=== PATIENT | female | born 1985 | race Caucasian/White ===

== ENCOUNTER 2017-03-02 15:13 | Emergency (ER) | payer OTHER ==
[~2017-03-02] VITALS: Ht 172.7 cm; Wt 141.0 kg
[2017-03-02 15:17] VITALS: BP 134/66; PULSE 96; RESP 16; TEMP 98.3; O2SAT 99
[2017-03-02] MEDS ORDERED: PAXI10TA2 PO (15:44)
[2017-03-02] MEDS ORDERED: TIZA4TAB PO (15:44)
[2017-03-02] MEDS ORDERED: AMLO10TA2 PO ×2 (15:44→17:06)
[2017-03-02] MEDS ORDERED: DIAZ10 PO (15:44)
[2017-03-02] MEDS ORDERED: METF500T PO (15:44)
[2017-03-02] MEDS ORDERED: ADDE20 PO (15:46)
[2017-03-02] MEDS ORDERED: LORA-373 PO (15:46)
[2017-03-02] MEDS ORDERED: PROMETHAZINE INJ 25 MG/ML VIAL IM ONE (16:00)
[2017-03-02] MEDS ORDERED: MORPHINE SULFATE 8 MG/ML INJ IV PUSH ONE (16:00)
[2017-03-02] MEDS ORDERED: SODIUM CHLOR 0.9% 1000 ML INJ 1,000 ML IV ONE (16:00)
[2017-03-02] MEDS ORDERED: DEXAMETHASONE SOD PHOS 4 MG/ML VIAL IV PUSH ONE (16:00)
[2017-03-02] MEDS ORDERED: diphenhydrAMINE HCL 50 MG/ML VIAL IV PUSH ONE (16:00)
--- NOTE | 2017-03-02 16:21 | PD ---
HPI Chief Complaint: Headache Time Seen by Provider: 15:43 Travel History International Travel<30 days: No Contact w/Intl Traveler<30days: No Traveled to known affect area: No History of Present Illness HPI This is a 32-year-old female who has a history of chronic migraines who presents to the emergency department with headache that's been going on for 2 days, constant, severe, in the temporal area associated with photophobia. She states that her headache is similar to her chronic migraines. She is here on vacation. She says her doctor usually prescribes her nasal Stadol as a rescue medication but she doesn't have it with her. She also has heavy vaginal bleeding which is normal for her. PFSH Past Medical History Medical other: Yes (PCOS) Migraines: Yes Influenza Vaccination: No ?: Not LMP: 02/26/2017 Social History Alcohol Use: No Tobacco Use: No Substance Use: No Allergies-Medications (Allergen,Severity, Reaction): Coded Allergies: meperidine (Verified Adverse Reaction, Intermediate, VOMITING, 03/02/17) metoclopramide (Verified Adverse Reaction, Intermediate, CRAZY ANXIETY, 03/02/17) prochlorperazine (Verified Adverse Reaction, Intermediate, CRAZY ANXIETY, 03/02/17) Reported Meds & Prescriptions Reported Meds & Active Scripts Active Reported Adderall (Amphetamine-Dextroamphetamine) 20 Mg Tab 20 Mg PO TID Avoid late evening doses. Space doses at least 4 to 6 hours if more than once/day dosing. Lorazepam 0.5 Mg Tab 0.5 Mg PO HS PRN Tizanidine (Tizanidine HCl) 4 Mg Tab 4 Mg PO QID Amlodipine (Amlodipine Besylate) 10 Mg Tab 10 Mg PO DAILY Metformin (Metformin HCl) 500 Mg Tab 500 Mg PO BIDPC With meals Valium (Diazepam) 10 Mg Tab 10 Mg PO TID Paxil (Paroxetine HCl) 10 Mg Tab 20 Mg PO DAILY Review of Systems Except as stated in HPI: all other systems reviewed are Neg Physical Exam Narrative GENERAL:Well appearing, no acute distress SKIN: Focused skin assessment warm and dry. HEAD: Atraumatic. Normocephalic. EYES: Pupils equal and round. No injection or drainage. ENT: Moist mucous membranes NECK: Trachea midline. CARDIOVASCULAR: Regular rate and rhythm. No murmur appreciated. RESPIRATORY: Clear to auscultation. Breath sounds equal bilaterally. GASTROINTESTINAL: Abdomen soft, non-tender, nondistended. MUSCULOSKELETAL: No obvious deformities. NEUROLOGICAL: Awake and alert. No obvious cranial nerve deficits. No dysarthria or aphasia. Moving all extremities. PSYCHIATRIC: Appropriate mood and affect; insight and judgment normal. Data Data Last Documented VS Vital Signs Date Time Temp Pulse Resp B/P (MAP) Pulse Ox O2 Delivery O2 Flow Rate FiO2 03/02/17 15:17 98.3 96 16 134/66 (88) 99 Orders Orders Sodium Chlor 0.9% 1000 Ml Inj (Ns 1000 M (03/02/17 16:00) Morphine Inj (Morphine Inj) (03/02/17 16:00) Dexamethasone Inj (Decadron Inj) (03/02/17 16:00) Diphenhydramine Inj (Benadryl Inj) (03/02/17 16:00) Promethazine Inj (Phenergan Inj) (03/02/17 16:00) Morphine Inj (Morphine Inj) (03/02/17 17:00) Lidocaine 2% Viscous (Xylocaine 2% Visco (03/02/17 17:00) Jcmbv-Rsbkrh-Vopnmy-Pb Liq ( Liq (03/02/17 17:00) Al-Mag Hy-Si 40-40-4 Mg/Ml Liq (Mag-Al P (03/02/17 17:00) MDM Medical Decision Making Medical Screen Exam Complete: Yes Emergency Medical Condition: Yes Interpretation(s) afebrile, mild tachycardia Differential Diagnosis migraine headache, subarachnoid hemorrhage, meningitis, encephalitis Narrative Course This is a 32-year-old female who has a history of chronic migraines who is visiting from out of town who presents to the emergency department reporting a headache similar to her typical migraines. She has a grossly normal neurologic exam. I tried to call her neurologist in [place] because she wanted me to confirm used Stadol prescription that she has but the voicemail of the neurologists office was full. She was given Benadryl, Decadron, IV fluids, Phenergan and some pain control. She feels better. I told her I wasn't comfortable filling chronic opiates from the emergency department. She was given refills on her blood pressure medication. Diagnosis Primary Impression: Migraine Qualified Codes: G43.909 - Migraine, unspecified, not intractable, without status migrainosus Patient Instructions: General Instructions Additional Instructions: If you develop severe worsening headache, persistent vomiting, numbness, weakness, difficulty walking or difficulty talking return to the emergency department immediately. Sometimes in the emergency department we did not identify the cause of headaches. If you continued to have headaches it is very important that you followup with your primary care physician as you may need further testing with an MRI. Med/Other Pt SpecificInfo: Prescription(s) given Scripts Promethazine (Promethazine) 12.5 Mg Tab 12.5 MG PO Q6H Y for NAUSEA OR VOMITING, #10 TAB 0 Refills Prov: Leah Avery MD 03/02/17 Tizanidine (Tizanidine) 4 Mg Cap 4 MG PO QID for Muscle Spasm, #10 CAP 0 Refills Prov: Leah Avery MD 03/02/17 Amlodipine (Amlodipine) 10 Mg Tab 10 MG PO DAILY for Blood Pressure Management, #10 TAB 0 Refills Prov: Leah Avery MD 03/02/17 Disposition: 01 DISCHARGE HOME Condition: Stable Leah Avery MD Mar 02, 2017 16:21
[2017-03-02 16:40] VITALS: BP 144/83; PULSE 91; RESP 16; O2SAT 98
[2017-03-02] MEDS ORDERED: MORPHINE SULFATE 4 MG/ML INJ IV PUSH ONE ×2 (17:00→17:15)
[2017-03-02] MEDS ORDERED: ALUMINUM/MAGNESIUM/SIMETH 30 ML CUP PO ONE (17:00)
[2017-03-02] MEDS ORDERED: LIDOCAINE VISCOUS 2% SOLN 15 ML UDC SWISH-SWAL ONE (17:00)
[2017-03-02] MEDS ORDERED: ATROPINE/SCOPOLAM/HYOSCYAM/PB ELIXIR 10 ML CUP PO ONE (17:00)
[2017-03-02] MEDS ORDERED: TIZA4CAP3 PO (17:06)
[2017-03-02] MEDS ORDERED: PROM12.54 PO (17:06)
[2017-03-02 17:50] VITALS: BP 133/78; PULSE 101; RESP 16; O2SAT 96
[2017-03-02] MEDS ORDERED: BUTO10SO NASAL (17:55)
== END 2017-03-02 18:09 | disposition home or self-care (01) ==
LOC: PHED 15:13
DX: G43.909 Migraine, unspecified, not intractable, without status migrainosus (principal)
CPT/HCPCS: 96372; 96374; 96375; 96376; 99284; J1100; J1200; J2270; J2550; J7030